=== PATIENT | female | born 1975 | race Caucasian/White ===

== ENCOUNTER 2018-03-30 12:06 | Emergency (ER) | payer OTHER ==
[2018-03-30 12:12] VITALS: TEMP 98.2; BMI 28.1
[2018-03-30] MEDS ORDERED: KETOROLAC TROMETHAMINE 30 MG/1 ML VIAL IVPUSH ONE (12:22)
[2018-03-30] MEDS ORDERED: KETOROLAC TROMETHAMINE 30 MG/1 ML VIAL ONE (12:30)
[2018-03-30 12:45] LABS: BASO % 1.2 % (0-2.0); EOS % 1.3 % (0-4.5); HEMATOCRIT 40.9 % (32.4-45.2); LYMPH % 23.9 % (8-40); MCH 32.7 pg (25.7-33.7); MCHC 36.6 g/dl (32.0-36.0); MEAN CELL VOLUME 89.3 fl (80-96); MEAN PLT VOLUME 8.1 fl (7.5-11.1); MONO % 7.9 % (3.8-10.2); NEUT % 65.7 % (42.8-82.8); PLATELET COUNT 359 K/MM3 (134-434); RBC 4.58 M/mm3 (3.60-5.2); RDW 12.6 % (11.6-15.6); WHITE BLOOD COUNT 9.5 K/mm3 (4.0-10.0)
[2018-03-30 12:49] LABS: HCG,QUALITATIVE URINE Negative
[2018-03-30 12:53] LABS: URINE APPEARANCE CLEAR; URINE BILIRUBIN NEGATIVE (<2.0 mg/dL); URINE COLOR YELLOW; URINE GLUCOSE (UA) NEGATIVE (NEGATIVE); URINE KETONE NEGATIVE (NEGATIVE); URINE LEUK ESTERASE NEGATIVE (NEGATIVE); URINE NITRITE NEGATIVE (NEGATIVE); URINE PROTEIN NEGATIVE (NEGATIVE); URINE UROBILINOGEN NEGATIVE mg/dL (0.2-1.0)
[2018-03-30 12:57] LABS: EPI CELLS RARE /HPF (FEW)
[2018-03-30 13:03] LABS: ALBUMIN 3.6 g/dl (3.4-5.0); ANION GAP 11 MMOL/L (8-16); BILIRUBIN,TOTAL 0.6 mg/dL (0.2-1.0); BLOOD UREA NITROGEN 10 mg/dL (7-18); CALCIUM 8.3 mg/dL (8.5-10.1); CHLORIDE 107 mmol/L (98-107); CO2 22 mmol/L (21-32); CREATININE 0.7 mg/dL (0.55-1.02); GLUCOSE,RANDOM 111 mg/dL (74-106); POTASSIUM 4.2 mmol/L (3.5-5.1); SGOT/AST 15 U/L (15-37); SGPT/ALT 18 U/L (12-78); SODIUM 140 mmol/L (136-145); TOT PROT 6.8 g/dl (6.4-8.2)
[2018-03-30 13:04] LABS: ALK PHOS 65 U/L (45-117)
--- NOTE | 2018-03-30 13:04 | PDOC ---
History of Present Illness - General Chief Complaint: Pain Stated Complaint: LT SIDE PAIN Time Seen by Provider: 03/30/18 12:14 History Source: Patient Exam Limitations: No Limitations - History of Present Illness Travel History: No Initial Comments: 03/30/18 14:06 42-year-old female presents to ED with complaints of left lower quadrant pain worsening with sexual intercourse and movement for the past week. She states went to her [facility] and performed an ultrasound along with urine and exam is only significant finding of a small left ovarian cyst. The pt states has not taken anything for the above and decided to come to the ER when symptoms slightly worsened. Patient denies urinary complaints, back pain, GI disorders, disorders, irregular menses, abdominal distention, or abdominal surgery. Timing/Duration: reports: getting worse, intermittent Quality: reports: moderate, cramping, sharpness Abdominal Pain Onset Location: reports: LLQ Pain Radiation: reports: no radiation Activities at Onset: reports: none Aggravating Factors: improves with: [place], Movement Alleviating Factors: improves with: None Past History - Travel Traveled outside of the country in the last 30 days: No - Past Medical History Allergies/Adverse Reactions: Allergies Allergy/AdvReac Type Severity Reaction Status Date / Time No Known Allergies Allergy Verified 03/30/18 12:11 Home Medications: Ambulatory Orders Sertraline HCl 50 mg PO DAILY 01/02/13 COPD: No Hypercholesterolemia: Yes - Suicide/Smoking/Psychosocial Hx Smoking Status: Yes Smoking History: Current every day smoker Have you smoked in the past 12 months: Yes Number of Cigarettes Smoked Daily: 20 Information on smoking cessation initiated: No Hx Alcohol Use: No Drug/Substance Use Hx: No Substance Use Type: None Patient Lives Alone: No Lives with/in: spouse/SO Review of Systems - Review of Systems Able to Perform ROS?: No Constitutional: No: Symptoms Reported HEENTM: No: Symptoms Reported Respiratory: No: Symptoms reported Cardiac (ROS): No: Symptoms Reported ABD/GI: Yes: Abdominal cramping : No: Symptoms Reported Musculoskeletal: No: Symptoms Reported Integumentary: No: Symptoms Reported Neurological: No: Symptoms reported Hematologic/Lymphatic: No: Symptoms Reported *Physical Exam - Vital Signs Last Vital Signs Temp Pulse Resp BP Pulse Ox 98.2 F 89 17 148/78 100 03/30/18 12:08 03/30/18 12:08 03/30/18 12:08 03/30/18 12:08 03/30/18 12:08 - Physical Exam General Appearance: Yes: Nourished, Appropriately Dressed. No: Apparent Distress HEENT: negative: Pale Conjunctivae Neck: positive: Normal Thyroid Respiratory/Chest: positive: Lungs Clear, Normal Breath Sounds. negative: Respiratory Distress, Accessory Muscle Use Cardiovascular: positive: Regular Rhythm, Regular Rate. negative: Murmur Gastrointestinal/Abdominal: positive: Normal Bowel Sounds, Soft, Tenderness ( left periumbilical, left flank and left lower quadrant). negative: Distended Extremity: positive: Normal Capillary Refill. negative: Pedal Edema Integumentary: positive: Normal Color, Warm, Moist Neurologic: positive: Motor Strength 5/5 (ambulatory) ED Treatment Course - LABORATORY CBC & Chemistry Diagram: 03/30/18 12:30 03/30/18 12:40 - RADIOLOGY Radiology Studies Ordered: Category Date Time Status PELVIC / BLADDER US [US] Stat Ultrasound 03/30/18 12:22 Ordered TRANSVAGINAL ULTRASOUND US [US] Stat Ultrasound 03/30/18 12:26 Ordered Medical Decision Making - Medical Decision Making 03/30/18 14:01 Patient here with left abdominal pink past week worsened with movement and sexual intercourse. Patient exam had left periumbilical left lower quadrant tenderness with mild guarding. Patient ordered for labs, urine and urine and ultrasound. Patient also ordered for Toradol. 03/30/18 15:02 Laboratory Tests 03/30/18 03/30/18 03/30/18 12:30 12:30 12:40 WBC 9.5 Hgb 15.0 Hct 40.9 MCHC 36.6 H Neutrophils % 65.7 D Sodium 140 Potassium 4.2 Carbon Dioxide 22 BUN 10 Creatinine 0.7 Creat Clearance w eGFR > 60 Random Glucose 111 H Calcium 8.3 L Total Bilirubin 0.6 AST 15 ALT 18 Alkaline Phosphatase 65 Total Protein 6.8 Albumin 3.6 Urine Blood 1+ H Urine Nitrite Negative Ur Leukocyte Esterase Negative Urine WBC (Auto) 2 Urine RBC (Auto) 3 Urine HCG, Qual Negative Ultrasound was essentially negative. Patient ordered for spiral CT to rule out colic, diverticulosis and other etiologies. 03/30/18 15:49 CT shows no evidence of urinary tract calculi or obstructive uropathy. There is no acute pathology within the abdomen or pelvis. Patient states moderate relief with Toradol. *DC/Admit/Observation/Transfer Diagnosis at time of Disposition: Abdominal pain - Discharge Dispostion Disposition: HOME Condition at time of disposition: Good - Referrals Referrals: Christopher Kellogg MD [Primary Care Provider] - Kavon Solis MD [Staff Physician] - - Patient Instructions Printed Discharge Instructions: DI for Abdominal Pain-Adult Additional Instructions: At this time your lab work urine and ultrasound including your CT were negative for acute emergent findings. I do recommend to take Tylenol Motrin for discomfort and to follow-up with admin dir. If your symptoms worsen prior to your follow-up, please return to the ED - Post Discharge Activity
[2018-03-30 14:45] LABS: PLATELET ESTIMATE ADEQUATE
[2018-03-30 16:16] VITALS: BP 119/71; PULSE 67
== END 2018-03-30 16:10 | disposition home or self-care (01) ==
LOC: JER 12:06
PROC: 3E0333Z Introduction of Anti-inflammatory into Peripheral Vein, Percutaneous Approach (ICD-10-PCS; principal; 2018-03-30)
DX: N83.202 Unspecified ovarian cyst, left side (principal); R10.32 Left lower quadrant pain
CPT/HCPCS: 36415; 74176; 76830-TC; 76856-TC; 80053; 81003; 81015; 84703; 85025; 87077; 87086; 99283-25